=== PATIENT | female | born 1990 | race Caucasian/White ===

== ENCOUNTER → 2019-09-16 | Outpatient (CLI) | payer BC ==
--- NOTE | 2019-09-16 12:39 | RAD ---
EXAM: Obstetrics sonogram. HISTORY: Viability scan. TECHNIQUE: Sonographic imaging of a gravid uterus was performed. COMPARISON: None. FINDINGS: There is a single intrauterine gestational sac with pole. The crown-rump length is 2.9 cm, corresponding with a gestational age of 9 weeks and 5 days and due date of 04/15/2020. The heart rate is normal at 178 bpm. The ovaries are normal in size and demonstrate normal blood flow. The cervix is normal in length. There is suggestion of trace fluid within the endocervical canal. No subchronic hematoma is seen. IMPRESSION: Single intrauterine fetus with normal heart rate and gestational age based on ultrasound measurements of 9 weeks and 5 days. Electronically signed by: Jennifer Ortiz MD (09/16/2019 12:36 PM) [id number]
== END | disposition home or self-care (01) ==
LOC: US 10:34
PROVIDERS: ATTEND Obstetrics & Gynecology
DX: Z34.91 Encounter for supervision of normal pregnancy, unspecified, first trimester (principal); Z3A.09 9 weeks gestation of pregnancy
CPT/HCPCS: 76801

== ENCOUNTER → 2019-09-30 | Outpatient (CLI) | payer BC ==
[2019-09-30 15:14] LABS: BASO % 0 % (0-3); EOS % 0 % (0-3); HEMATOCRIT 36.2 % (36.0-47.0); HEMOGLOBIN 12.3 g/dL (12.0-15.5); LYMPH # 2.6 x10^3/uL (1.0-4.8); LYMPH % 40 % (24-48); MEAN CORPUSCULAR HEMOGLOBIN 31 pg (25-35); MEAN CORPUSCULAR HGB CONC 34 g/dL (31-37); MEAN CORPUSCULAR VOLUME 91 fL (79-100); MONO # 0.3 x10^3/uL (0.0-1.1); MONO % 5 % (0-9); NEUT # 3.5 x10^3uL (1.8-7.7); NEUT % 54 % (31-73); PLATELET COUNT 179 x10^3/uL (140-400); RED BLOOD COUNT 3.96 x10^6/uL (3.50-5.40); RED CELL DISTRIBUTION WIDTH 12.5 % (11.5-14.5); WHITE BLOOD COUNT 6.5 x10^3/uL (4.0-11.0)
[2019-10-01 14:28] LABS: FREE T4 1.02 ng/dL (0.76-1.46); THYROID STIM HORMONE (TSH) 0.44 uIU/mL (0.358-3.740)
[2019-10-01 16:07] LABS: RUBELLA IGG ANTIBODY 1.78 index (Immune >0.99)
== END | disposition home or self-care (01) ==
LOC: LAB 13:54
PROVIDERS: ATTEND Obstetrics & Gynecology
DX: Z34.91 Encounter for supervision of normal pregnancy, unspecified, first trimester (principal); Z3A.00 Weeks of gestation of pregnancy not specified
CPT/HCPCS: 36415; 81220; 84439; 84443; 85025; 86592; 86703; 86762; 86787; 86803; 86850; 86900; 86901; 87340

== ENCOUNTER → 2019-11-25 | Outpatient (CLI) | payer BC ==
--- NOTE | 2019-11-25 10:26 | RAD ---
EXAM: OBSTETRIC ULTRASOUND. HISTORY: anatomy survey. COMPARISON: None. FINDINGS: Sonographic evaluation of the uterus, fetus and maternal pelvis was performed. There is a single fetus in breech presentation. heart rate is 147 bpm. Estimated gestational age based on measurements is 20 weeks 3 days. Head circumference, biparietal diameter, abdominal circumference and femur length are commensurate. Estimated weight is 351 g. The placenta is anterior. A placental chavarria is incidentally noted. There is no evidence of placenta previa. Amniotic fluid volume appears normal with amniotic fluid index 18.0 cm. The cervix is closed and measures 3.6 cm. Intracranial contents demonstrate no hydrocephalus. The posterior fossa appears normal. The stomach and bladder are visualized. The cord insertion appears normal. The cord is three-vessel. Images of the kidneys reveal no hydronephrosis. extremities appear normal. Facial and nose/lip morphology appears normal. The profile is not well demonstrated given positioning. Images of the spine reveal no clear defects. Four-chamber cardiac morphology is not well demonstrated on these images.. The maternal adnexa are obscured by positioning currently. IMPRESSION: 1. Single fetus in breech presentation. heart rate 147 bpm. Estimated gestational age based on measurements 20 weeks 3 days. 2. Cardiac morphology and the profile are not well demonstrated currently given positioning. Attention on further follow-up is recommended. Electronically signed by: Trevor Wellintgon MD (11/25/2019 10:23 AM) [id number]
== END | disposition home or self-care (01) ==
LOC: US 08:26
PROVIDERS: ATTEND Obstetrics & Gynecology
DX: O32.1XX0 Maternal care for breech presentation, not applicable or unspecified (principal); Z3A.20 20 weeks gestation of pregnancy
CPT/HCPCS: 76805

== ENCOUNTER → 2019-12-31 | Outpatient (CLI) | payer BC ==
--- NOTE | 2019-12-31 11:42 | RAD ---
EXAM: Limited OB ultrasound Greater than 14 weeks INDICATION: Reason: CARDIAC VIEWS / Spl. Instructions: / History: TECHNIQUE: Real-time obstetrical ultrasound was performed with permanent freeze-frame documentation. COMPARISON: 11/25/2019 OB ultrasound FINDINGS: POSITION: Breech HEART RATE: 143 bpm MORRIS: 21.5 cm PLACENTA: Anterior CERVICAL LENGTH: 3.6 cm MATERNAL UTERUS: Unremarkable. MATERNAL ADNEXA: Unremarkable. AGE/DATES: Gestational Age by LMP: 25 weeks 3 days Gestation Age by US: 25 weeks 1 day EDC by LMP: April 11, 2020 EDC by US: April 13, 2020 WEIGHT: 738 grams +/- 109 grams PERCENTILE WEIGHT: 37%. BIOMETRIC PARAMETERS: BPD: 6.3 cm corresponding with 25 weeks 4 days HC: 23.5 cm corresponding with 25 weeks 4 days AC: 19.8 cm corresponding with 24 weeks 3 days FL: 4.5 cm corresponding with 25 weeks 0 days ANATOMY: CARDIAC: Normal four chamber heart. Normal right and left ventricular outflow tracts. UMBILICAL CORD: Normal 3 vessel cord. Normal cord insertion documented on previous ultrasound. BRAIN: Unremarkable. NOSE/LIPS: Not assessed SPINE: Not assessed EXTREMITIES: Not assessed STOMACH: Normal stomach previously documented KIDNEYS: Unremarkable. BLADDER: Unremarkable. IMPRESSION: Normal limited OB ultrasound demonstrating a single viable fetus in breech position with a 4 chamber heart, and normal left and right ventricular outflow tracts. Estimated gestational age of 25 weeks 1 day and EDC of April 13, 2020.. Electronically signed by: Tushar Keller MD (12/31/2019 11:39 AM) [id number]
== END ==
LOC: US 09:57
PROVIDERS: ATTEND Obstetrics & Gynecology
DX: O32.1XX0 Maternal care for breech presentation, not applicable or unspecified (principal); Z3A.25 25 weeks gestation of pregnancy
CPT/HCPCS: 76816

== ENCOUNTER → 2020-01-15 | Outpatient (CLI) | payer BC ==
[2020-01-15 11:59] LABS: BASO % 0 % (0-3); EOS % 1 % (0-3); HEMATOCRIT 35.5 % (36.0-47.0); HEMOGLOBIN 11.8 g/dL (12.0-15.5); LYMPH # 2.2 x10^3/uL (1.0-4.8); LYMPH % 29 % (24-48); MEAN CORPUSCULAR HEMOGLOBIN 32 pg (25-35); MEAN CORPUSCULAR HGB CONC 33 g/dL (31-37); MEAN CORPUSCULAR VOLUME 96 fL (79-100); MONO # 0.3 x10^3/uL (0.0-1.1); MONO % 4 % (0-9); NEUT # 5.2 x10^3uL (1.8-7.7); NEUT % 66 % (31-73); PLATELET COUNT 152 x10^3/uL (140-400); RED BLOOD COUNT 3.72 x10^6/uL (3.50-5.40); RED CELL DISTRIBUTION WIDTH 12.5 % (11.5-14.5); WHITE BLOOD COUNT 7.8 x10^3/uL (4.0-11.0)
== END | disposition home or self-care (01) ==
LOC: LAB 08:28
PROVIDERS: ATTEND Obstetrics & Gynecology
DX: Z34.92 Encounter for supervision of normal pregnancy, unspecified, second trimester (principal); Z3A.27 27 weeks gestation of pregnancy
CPT/HCPCS: 36415; 82950; 85025

== ENCOUNTER 2021-03-25 06:48 | Emergency (ER) | payer BC ==
[~2021-03-25] VITALS: Ht 160 cm; Wt 66.0 kg
[2021-03-25 07:01] VITALS: BP 118/75
[2021-03-25] MEDS ORDERED: IV NORMAL SALINE 1,000ML 1,000 ML IV ONE (07:15)
[2021-03-25] MEDS ORDERED: ONDANSETRON PF 4 MG/2 ML VIAL. IVP ONE (07:15)
--- NOTE | 2021-03-25 07:19 | PHYS DOC ---
Past History Past Surgical History: Cholecystectomy, Other Additional Past Surgical Histo: knee scope Alcohol Use: None General Adult EDM: Chief Complaint: NAUSEA/VOMITING/DIARRHEA HPI: HPI: 30-year-old female presents with 3 days of nausea, vomiting, and general fatigue. She has not had any diarrhea. No one else in her household is sick. She has general abdominal pain, but no specific focal pain. She is not vaccinated against COVID-19. Her last menstrual cycle was February 04. Her only abdominal surgical history is gallbladder removal. She denies fever or chills. Review of Systems: Review of Systems: Constitutional: Denies fever or chills Eyes: Denies change in visual acuity HENT: Denies nasal congestion or sore throat Respiratory: Denies cough or shortness of breath Cardiovascular: Denies chest pain or edema GI: Mild generalized abdominal pain, nausea, vomiting. : Denies dysuria Musculoskeletal: Denies back pain or joint pain Integument: Denies rash Neurologic: Denies headache, focal weakness or sensory changes Endocrine: Denies polyuria or polydipsia Lymphatic: Denies swollen glands Psychiatric: Denies depression or anxiety Allergies: Allergies: Allergies Coded Allergies Type Severity Reaction Last Updated Verified No Known Drug Allergies 03/25/21 No Physical Exam: PE: Constitutional: Well developed, well nourished, no acute distress, non-toxic appearance. [] HENT: Normocephalic, atraumatic, bilateral external ears normal, oropharynx moist, no oral exudates, nose normal. [] Eyes: PERRLA, EOMI, conjunctiva normal, no discharge. [] Neck: Normal range of motion, no tenderness, supple, no stridor. [] Cardiovascular: Heart rate regular rhythm, no murmur [] Lungs & Thorax: Bilateral breath sounds clear to auscultation [] Abdomen: Bowel sounds normal, soft, no tenderness, no masses, no pulsatile masses. [] Skin: Warm, dry, no erythema, no rash. [] Back: No tenderness, no CVA tenderness. [] Extremities: No tenderness, no cyanosis, no clubbing, ROM intact, no edema. [] Neurologic: Alert and oriented X 3, normal motor function, normal sensory function, no focal deficits noted. [] Psychologic: Affect normal, judgement normal, mood normal. [] Current Patient Data: Vital Signs: Vital Signs Date Time Temp Pulse Resp B/P (MAP) Pulse Ox O2 Delivery O2 Flow Rate FiO2 03/25/21 07:01 97.8 90 18 118/75 (89) 100 EKG: EKG: [] Radiology/Procedures: Radiology/Procedures: [] Impressions: US OB <14 WKS +TV History: +preg, abdominal pain Comparison: None. Technique: Sonographic examination of the pelvis was performed with transabdominal and transvaginal technique. Findings: The uterus is normal in size and echogenicity, measuring 10.5 x 6.1 x 7.3 cm. The uterus contains a single gestational sac with normal shape. The mean sac diameter is 1.68 cm, corresponding to a gestational age of 6 weeks 4 days. A normal size and morphology yolk sac is present. A pole is not seen. There is no evidence of perigestational hemorrhage. The right ovary is normal in size and echogenicity, measuring 3.3 x 1.6 x 2.5 cm. The left ovary is normal in size and echogenicity, measuring 3.3 x 2.3 x 2.4 cm. There is a left ovarian corpus luteum measuring approximately 1.5 cm diameter. There is no evidence of adnexal mass or free fluid. Impression: 1. Mean sac diameter of 1.68 cm corresponding to gestational age of 6 weeks 4 days with yolk sac but no embryo identified. These ultrasound findings are suspicious for, but not diagnostic of failure. Recommend close clinical follow-up with beta hCG and repeat ultrasound as needed. Electronically signed by: León Camarillo MD (03/25/2021 9:24 AM) [id number] DICTATED AND SIGNED BY: LEÓN CAMARILLO MD DATE: 03/25/21 0915 CC: JOHN YADAV DO; PCP,NO ~MTH0 0 Heart Score: C/O Chest Pain: N/A Risk Factors: Risk Factors: DM, Current or recent (<one month) smoker, HTN, HLP, family history of CAD, obesity. Risk Scores: Score 0 - 3: 2.5% MACE over next 6 weeks - Discharge Home Score 4 - 6: 20.3% MACE over next 6 weeks - Admit for Clinical Observation Score 7 - 10: 72.7% MACE over next 6 weeks - Early Invasive Strategies Course & Med Decision Making: Course & Med Decision Making Pertinent Labs and Imaging studies reviewed. (See chart for details) The patient's urine test is positive. She is not having any vaginal bleeding or discharge. The patient's labs are unremarkable. Her urine is suspicious for UTI. I will treat her with Keflex for 5 days. I ordered an ultrasound and it shows a yolk sac, but no activity. This is unusual given the hCG level. Could indicate nonviable . She will follow-up with her OB for repeat hCG and ultrasound as directed. I will discharge her with Zofran to help with her vomiting. She is stable for discharge at this time. [] Dragon Disclaimer: Dragon Disclaimer: This electronic medical record was generated, in whole or in part, using a voice recognition dictation system. Departure Departure: Impression: Primary Impression: Qualified Codes: Z3A.01 - Less than 8 weeks gestation of Additional Impression: UTI (urinary tract infection) Qualified Codes: N30.01 - Acute cystitis with hematuria Disposition: HOME / SELF CARE / HOMELESS Condition: STABLE Referrals: PCPCASTILLO (PCP) Patient Instructions: - First Trimester, [id number] JOHN YADAV DO Mar 25, 2021 07:19
[2021-03-25 07:42] LABS: BASO % 0 % (0-3); EOS % 0 % (0-3); HEMATOCRIT 42.4 % (36.0-47.0); HEMOGLOBIN 13.9 g/dL (12.0-15.5); LYMPH # 2.1 x10^3/uL (1.0-4.8); LYMPH % 24 % (24-48); MEAN CORPUSCULAR HEMOGLOBIN 30 pg (25-35); MEAN CORPUSCULAR HGB CONC 33 g/dL (31-37); MEAN CORPUSCULAR VOLUME 91 fL (79-100); MONO # 0.5 x10^3/uL (0.0-1.1); MONO % 5 % (0-9); NEUT # 6.2 x10^3uL (1.8-7.7); NEUT % 71 % (31-73); PLATELET COUNT 167 x10^3/uL (140-400); RED BLOOD COUNT 4.68 x10^6/uL (3.50-5.40); RED CELL DISTRIBUTION WIDTH 12.8 % (11.5-14.5); WHITE BLOOD COUNT 8.8 x10^3/uL (4.0-11.0)
[2021-03-25 07:49] LABS: BILIRUBIN,URINE NEG (NEG); CLARITY,URINE HAZY; COLOR,URINE YELLOW; GLUCOSE,URINE NEG (NEG)
[2021-03-25 07:50] LABS: NITRITE,URINE NEG (NEG); UROBILINOGEN,URINE 0.2 mg/dL (0.2 mg/dL)
[2021-03-25 07:52] LABS: CALCIUM 8.9 mg/dL (8.5-10.1); CREATININE 0.5 mg/dL (0.6-1.0); GFR 145.9; POTASSIUM 3.5 mmol/L (3.5-5.1)
[2021-03-25 07:52] LABS: AMORPHOUS SEDIMENT,UR PRESENT /HPF; BACTERIA,URINE MOD /HPF (0-FEW); SQUAMOUS EPITHELIAL CELL,UR MANY /LPF
[2021-03-25 07:58] LABS: ALBUMIN 4.2 g/dL (3.4-5.0); ALBUMIN/GLOBULIN RATIO 1.2 (1.0-1.7); TOTAL BILIRUBIN 0.7 mg/dL (0.2-1.0); TOTAL PROTEIN 7.6 g/dL (6.4-8.2)
[2021-03-25] MEDS ORDERED: CEPHALEXIN 250 MG CAPSULE PO ONE (08:30)
--- NOTE | 2021-03-25 09:26 | RAD ---
US OB <14 WKS +TV History: +preg, abdominal pain Comparison: None. Technique: Sonographic examination of the pelvis was performed with transabdominal and transvaginal t echnique. Findings: The uterus is normal in size and echogenicity, measuring 10.5 x 6.1 x 7.3 cm. The uterus contains a single gestational sac with normal shape. The mean sac diameter is 1.68 cm, cor responding to a gestational age of 6 weeks 4 days. A normal size and morphology yolk sac is present. A pole is not seen. There is no evidence of perigestational hemorrhage. The right ovary is normal in size and echogenicity, measuring 3.3 x 1.6 x 2.5 cm. The left ovary is normal in size and echogenicity, measuring 3.3 x 2.3 x 2.4 cm. There is a left ovar yamil corpus luteum measuring approximately 1.5 cm diameter. There is no evidence of adnexal mass or free fluid. Impression: 1. Mean sac diameter of 1.68 cm corresponding to gestational age of 6 weeks 4 days with yolk sac but no embryo identified. These ultrasound findings are suspicious for, but not diagnostic of f ailure. Recommend close clinical follow-up with beta hCG and repeat ultrasound as needed. Electronically signed by: León Camarillo MD (03/25/2021 9:24 AM) [id number]
[2021-03-25] MEDS ORDERED: CEPH500T PO (09:36)
[2021-03-25] MEDS ORDERED: ONDA4TAB12 PO (09:37)
== END 2021-03-25 09:50 | disposition home or self-care (01) ==
LOC: ER 06:48
DX: O21.8 Other vomiting complicating pregnancy (principal); O23.41 Unspecified infection of urinary tract in pregnancy, first trimester; N39.0 Urinary tract infection, site not specified; Z3A.01 Less than 8 weeks gestation of pregnancy; Z20.822 Contact with and (suspected) exposure to COVID-19
CPT/HCPCS: 36415; 76801; 76817; 80053; 81001; 81025; 84702; 85025; 87086; 96361; 96374; 99284; C9803; J2405; J7030; U0003

== ENCOUNTER → 2021-05-03 | Outpatient (CLI) | payer BC ==
[~2021-05-03] MED LIST: CEPH500T PO; ONDA4TAB12 PO
[2021-05-03 14:07] LABS: BASO % 0 % (0-3); EOS # 0.1 x10^3/uL (0.0-0.7); EOS % 1 % (0-3); HEMATOCRIT 35.5 % (36.0-47.0); LYMPH % 23 % (24-48); MEAN CORPUSCULAR HEMOGLOBIN 31 pg (25-35); MEAN CORPUSCULAR HGB CONC 34 g/dL (31-37); MEAN CORPUSCULAR VOLUME 91 fL (79-100); MONO # 0.3 x10^3/uL (0.0-1.1); MONO % 4 % (0-9); NEUT # 6.1 x10^3uL (1.8-7.7); NEUT % 72 % (31-73); PLATELET COUNT 167 x10^3/uL (140-400); RED BLOOD COUNT 3.92 x10^6/uL (3.50-5.40); RED CELL DISTRIBUTION WIDTH 13.5 % (11.5-14.5); WHITE BLOOD COUNT 8.5 x10^3/uL (4.0-11.0)
[2021-05-04 16:07] LABS: RUBELLA IGG ANTIBODY 1.62 index (Immune >0.99)
== END ==
LOC: LAB 11:35
PROVIDERS: ATTEND Obstetrics & Gynecology
DX: O09.71 Supervision of high risk pregnancy due to social problems, first trimester (principal); Z3A.00 Weeks of gestation of pregnancy not specified
CPT/HCPCS: 36415; 85025; 85660; 86592; 86703; 86762; 86787; 86803; 86850; 86900; 86901; 87340

== ENCOUNTER → 2021-09-05 | Outpatient (CLI) | payer BC, OTHER ==
[2021-09-05 10:07] LABS: BASO % 0 % (0-3); EOS # 0.1 x10^3/uL (0.0-0.7); EOS % 1 % (0-3); HEMATOCRIT 31.5 % (36.0-47.0); HEMOGLOBIN 10.4 g/dL (12.0-15.5); LYMPH % 29 % (24-48); MEAN CORPUSCULAR HEMOGLOBIN 30 pg (25-35); MEAN CORPUSCULAR HGB CONC 33 g/dL (31-37); MEAN CORPUSCULAR VOLUME 92 fL (79-100); MONO # 0.5 x10^3/uL (0.0-1.1); MONO % 7 % (0-9); NEUT # 4.2 x10^3uL (1.8-7.7); NEUT % 62 % (31-73); PLATELET COUNT 125 x10^3/uL (140-400); RED BLOOD COUNT 3.41 x10^6/uL (3.50-5.40); RED CELL DISTRIBUTION WIDTH 13.6 % (11.5-14.5); WHITE BLOOD COUNT 6.8 x10^3/uL (4.0-11.0)
== END ==
LOC: LAB 08:37
PROVIDERS: ATTEND Obstetrics & Gynecology
DX: Z34.93 Encounter for supervision of normal pregnancy, unspecified, third trimester (principal)
CPT/HCPCS: 36415; 82950; 85025